=== PATIENT | female | born 1965 | race African-American/Black ===

== ENCOUNTER 2016-10-02 20:47 | Emergency (ER) | payer OTHER, MEDICAID ==
[~2016-10-02] VITALS: Ht 170.2 cm; Wt 94.0 kg
[2016-10-02 22:05] LABS: CLARITY URINE CLEAR (CLEAR); COLOR URINE YELLOW (YELLOW); GLUCOSE URINE NEGATIVE (NEGATIVE); KETONES URINE NEGATIVE (NEGATIVE); LEUKOCYTE ESTERASE URINE 1+ (NEGATIVE); NITRITE URINE NEGATIVE (NEGATIVE); OCCULT BLOOD URINE NEGATIVE (NEGATIVE); PROTEIN URINE NEGATIVE (NEGATIVE); SPECIFIC GRAVITY URINE 1.013 (1.005-1.030)
[2016-10-02 22:27] LABS: RBC URINE 0-2 /hpf (0-2)
[2016-10-02 22:29] LABS: BACTERIA URINE 1+; MUCUS URINE 1+ /lpf (< = 2+); SQUAMOUS EPITHELIAL CELL URINE 1+ /lpf (RARE/1+)
[2016-10-03 00:45] VITALS: BP 156/92
== END 2016-10-03 00:59 | disposition home or self-care (01) ==
LOC: ER 20:47
DX: K59.00 Constipation, unspecified (principal); K21.9 Gastro-esophageal reflux disease without esophagitis; I10 Essential (primary) hypertension; F17.200 Nicotine dependence, unspecified, uncomplicated
CPT/HCPCS: 81001; 81025; 99283

== ENCOUNTER 2024-01-25 21:40 | Emergency (ER) | payer MEDICARE, MEDICAID ==
[~2024-01-25] VITALS: Ht 170.2 cm; Wt 101.0 kg
[2024-01-25 21:55] VITALS: BP 162/101; PULSE 105; RESP 14; TEMP 98.4; O2SAT 99
[2024-01-25 22:57] LABS: CHLORIDE 107 mEq/L (98-107); POTASSIUM 3.3 mEq/L (3.5-5.1); SODIUM 140 mEq/L (136-145)
[2024-01-25 22:58] LABS: CALCIUM 9.9 mg/dL (8.7-10.4); CARBON DIOXIDE 28 mEq/L (21-32)
[2024-01-25 23:03] LABS: BASOPHILS % 1.1 % (0.0-2.0); EOSINOPHILS % 8.2 % (0.0-5.0); GLUCOSE 110 mg/dL (70-105); HEMOGLOBIN. 10.5 g/dL (12.0-16.0); LYMPHOCYTES % 30.9 % (20.0-50.0); MEAN CORPUSCULAR HEMOGLOBIN 30.5 pg (28.0-32.0); MEAN CORPUSCULAR VOLUME 89.7 fL (81.0-99.0); MEAN PLATELET VOLUME 9.2 fl (7.4-10.4); NEUTROPHILS % 53.8 % (40.0-76.0); PLATELET 381 x1000/uL (130-400); RED BLOOD CELL COUNT 3.46 mill/uL (4.2-5.4); RED CELL DISTRIBUTION WIDTH 13.6 % (11.6-14.6); UREA NITROGEN BLOOD 19 mg/dL (9-23); WHITE BLOOD COUNT 7.9 x1000/uL (4.5-11.0)
[2024-01-26] MEDS: CLONIDINE 0.1MG TABLET PO ONE (00:16)
== END 2024-01-26 00:17 | disposition home or self-care (01) ==
LOC: ER 21:40
DX: I10 Essential (primary) hypertension (principal); K59.00 Constipation, unspecified; E84.9 Cystic fibrosis, unspecified; K21.9 Gastro-esophageal reflux disease without esophagitis; Z98.890 Other specified postprocedural states
CPT/HCPCS: 36415; 80048; 85025; 93005; 99284